=== PATIENT | female | born 1935 | race Caucasian/White ===

== ENCOUNTER → 2016-07-08 | Outpatient (CLI) | payer MEDICARE ==
--- NOTE | 2016-07-08 12:04 | RAD ---
INDICATION: Right leg swelling and pain COMPARISON: None. TECHNIQUE: Grayscale, color and spectral doppler ultrasound images were obtained of the right lower extremity venous vasculature. RIGHT: No thrombus identified in the common femoral vein, femoral vein, popliteal vein or visualized calf veins. Edema is visualized. IMPRESSION: 1. No thrombus identified in deep venous system of right lower extremity.
== END | disposition home or self-care (01) ==
LOC: US 10:19
PROVIDERS: ATTEND Family Medicine
DX: M79.604 Pain in right leg (principal); M79.89 Other specified soft tissue disorders
CPT/HCPCS: 93971

== ENCOUNTER 2016-10-22 08:25 | Outpatient (CLI) | payer MEDICARE ==
[2016-10-22] VITALS (8 sets, daily range): BP systolic 140–181; BP diastolic 68–81
[~2016-10-22] VITALS: Ht 157.5 cm; Wt 84.8 kg
[2016-10-22 09:36] LABS: BASO # 0.1 x10^3/uL (0.0-0.2); BASO % 1 % (0-3); EOS % 4 % (0-3); HEMOGLOBIN 13.1 g/dL (12.0-15.5); LYMPH # 2.1 x10^3/uL (1.0-4.8); LYMPH % 25 % (24-48); MEAN CORPUSCULAR HEMOGLOBIN 31 pg (25-35); MEAN CORPUSCULAR HGB CONC 35 g/dL (31-37); MEAN CORPUSCULAR VOLUME 89 fL (79-100); MONO % 8 % (0-9); NEUT % 63 % (31-73); PLATELET COUNT 244 x10^3/uL (140-400); RED BLOOD COUNT 4.29 x10^6/uL (3.50-5.40); RED CELL DISTRIBUTION WIDTH 14.9 % (11.5-14.5); WHITE BLOOD COUNT 8.4 x10^3/uL (4.0-11.0)
[2016-10-22] MEDS ORDERED: ALEN70TA5 PO (09:40)
[2016-10-22] MEDS ORDERED: HYDR12.58 PO (09:45)
[2016-10-22] MEDS ORDERED: METO50TA2 PO (09:45)
[2016-10-22] MEDS ORDERED: Diclofenac (09:45)
[2016-10-22 09:47] LABS: INR 0.9 (0.8-1.1); PROTHROMBIN TIME PATIENT 11.7 SEC (11.7-14.0)
[2016-10-22] MEDS ORDERED: HYDR-2666 PO (09:49)
[2016-10-22] MEDS ORDERED: CETI10TA22 PO (09:49)
[2016-10-22] MEDS ORDERED: OSC (09:49)
[2016-10-22] MEDS ORDERED: Oscal (09:51)
[2016-10-22] MEDS ORDERED: MIDAZOLAM HCL/PF 5 MG/5 ML VIAL. ONE (10:22)
[2016-10-22] MEDS ORDERED: fentaNYL PF VIAL 250 MCG/5 ML VIAL ONE (10:22)
[2016-10-22] MEDS ORDERED: LIDOCAINE 1% / SOD BICARB 8.4% 20 ML VIAL. IJ ONE ×2 (10:22→10:45)
[2016-10-22] MEDS ORDERED: MIDAZOLAM HCL/PF 5 MG/5 ML VIAL. IV ONE (10:45)
[2016-10-22] MEDS ORDERED: fentaNYL PF VIAL 250 MCG/5 ML VIAL IV ONE (10:45)
--- NOTE | 2016-10-22 11:19 | PDOC ---
MODERATE SEDATION ASSESSMENT RISKS/ALTERNATIVES Risks/Alternatives Risks and alternatives of this type of sedation and procedure discussed with: RISK/ALTERNATIVES: Patient H & P ON CHART H & P H & P on chart and reviewed for co-morbid conditions and appropriate labs. H&P ON CHART: Yes STATUS PREG STATUS ASSESSED: N/A MEDS/ALLERGIES REVIEWED Meds/Allergies Reviewed Medications and Allergies including time and route of recently administered narcotics and sedatives. MEDS/ALLERGIES REVIEWED: Yes ASA RATING ASA RATING: I AIRWAY ASSESSMENT Airway Assessment Airway patency, oral function limitations, presence of caps, crowns, dentures, partials, and ability to extend neck assessed. AIRWAY ASSESSMENT: Yes MALLAMPATI SCORE MALLAMPATI SCORE: III PRE-SEDATION ASSESSMENT PRE-SEDATION ASSESSMENT: Yes JAGDISH CANTU MD October 22, 2016 11:19
--- NOTE | 2016-10-22 11:24 | PDOC1 ---
History and Physical Date of Procedure Date of Admission 10/22/16 Procedure Procedure Fluoro guided L3 vertebroplasty Indication Indication 81 YO female with 5 week h/o severe LBP---Outside MRI c/w subacute osteoporotic L3 superior end plate compression fracture Past Medical History Past Medical History See Nursing Pre procedure PMH Past Surgical History Past Surgical History See Nursing Pre procedure PSH Current Medications Current Medications Current Medications Lidocaine/Sodium Bicarbonate (Buffered Lidocaine 1%) 20 ml STK-MED ONCE IJ ; Start 10/22/16 at 10:22; Stop 10/22/16 at 10:23; Status DC Midazolam HCl (Versed) 5 mg STK-MED ONCE .ROUTE ; Start 10/22/16 at 10:22; Stop 10/22/16 at 10:23; Status DC Fentanyl Citrate (Fentanyl 5ml Vial) 250 mcg STK-MED ONCE .ROUTE ; Start at 10:22; Stop 10/22/16 at 10:23; Status DC Cefazolin Sodium 50 ml @ As Directed STK-MED ONCE IV ; Start 10/22/16 at 10:22; Stop 10/22/16 at 10:23; Status DC Lidocaine/Sodium Bicarbonate (Buffered Lidocaine 1%) 20 ml 1X ONCE IJ Last administered on 10/22/16 11:13; Start 10/22/16 at 10:45; Stop 10/22/16 at 10:48 ; Status DC Midazolam HCl (Versed) 5 mg 1X ONCE IV Last administered on 10/22/16 11:15; Start 10/22/16 at 10:45; Stop 10/22/16 at 10:48; Status DC Fentanyl Citrate (Fentanyl 5ml Vial) 250 mcg 1X ONCE IV Last administered on 11:14; Start 10/22/16 at 10:45; Stop 10/22/16 at 10:48; Status DC Cefazolin Sodium 50 ml @ 100 mls/hr 1X ONCE IV Last administered on 10:32; Start 10/22/16 at 10:45; Stop 10/22/16 at 11:14; Status DC Active Scripts Active Reported [Oscal] 2 Tab DAILY Zyrtec (Cetirizine Hcl) 10 Mg Tablet 1 Tab PO DAILY Hydrocodone-Apap 5-325 (Hydrocodone Bit/Acetaminophen) 1 Each Tablet 1 Tab PO PRN Q6HRS PRN [Diclofenac] 7.5 Mg BID Hydrochlorothiazide Tablet (Hydrochlorothiazide) 12.5 Mg Tablet 12.5 Tab PO DAILY Metoprolol Tartrate 50 Mg Tablet 50 Mg PO BID Alendronate Sodium 70 Mg Tablet 1 Tab PO WEEKLY Allergies Allergies: Coded Allergies: No Known Drug Allergies (Unverified , 10/22/16) Physical Exam Vital Signs Vital Signs Date Time Temp Pulse Resp B/P (MAP) Pulse Ox O2 Delivery O2 Flow Rate FiO2 10/22/16 11:14 16 100 Nasal Cannula 2.0 10/22/16 11:08 70 10/22/16 09:05 97.6 181/77 (111) 97.6 Lungs: Clear to auscultation Heart: Regular rate Psych/Mental Status: Mental status NL Other Tender to palpation over mid L spine Diagnostic Data/Imaging Images Outside MRI L spine from [facility] dated 10/11/16 reviewed. Assessment Assessment Subacute osteoporotic L3 compression fracture, with severe LBP. Problems: Plan Plan Fluoro guided L3 vertebroplasty. JAGDISH CANTU MD October 22, 2016 11:24
--- NOTE | 2016-10-22 11:27 | PDOC ---
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 Post-Procedure Diagnosis Post-Procedure Diagnosis Same Procedure Performed Procedure Performed Fluoro guided L3 vertebroplasty Type of Anesthesia Type of Anesthesia Local + Mod sedation Estimated Blood Loss EBL: Minimal Condition of Patient Condition of Patient Stable. No apparent complication. Disposition Disposition Home from [facility] with son post recovery, if no problems. F/u with Dr Varela. Full report to follow. JAGDISH CANTU MD October 22, 2016 11:27
[2016-10-22] MEDS ORDERED: KETOROLAC TROMETHAMINE 30 MG/ML INJ. IV PRN (11:30)
--- NOTE | 2016-10-23 06:05 | RAD ---
Fluoro guided L3 Vertebroplasty Indication: 81-year-old female with subacute osteoporotic L3 superior endplate compression fracture, with associated severe, persistent low back pain. Fluoro time: 22.3 minutes Kerma-Area Product: 80 Gycm2 Moderate sedation: 41 minutes moderate sedation was provided utilizing a total of 2.5 mg Versed and 125 mcg fentanyl, IV. The patient was appropriately monitored by a qualified independent observer throughout the course of moderate sedation. Antibiotic: A single dose of Ancef was administered within 1 hour of the procedure start time. Consent: The procedure was explained in its entirety to the patient and/or the patient's designated inbound call center representative by a member of the treatment team. This included a discussion of risks and benefits and commonly accepted alternatives to the procedure, as well as expected consequences of no treatment at all. Discussion of risks included, but was not limited to, those that are most frequent and those that are rare, but possibly severe or life-threatening, as well as the possibility of unforeseen complications. Sterility: All elements of maximal sterile barrier technique, hand hygiene, skin preparation, and, if ultrasound was used, sterile ultrasound technique were followed. Procedure: Informed consent was obtained from the patient. She was placed prone on the angiography table. Midline low back was prepped and draped in the usual sterile fashion, utilizing all elements of maximal sterile barrier technique, as described above. Conscious sedation was provided with IV Versed and Fentanyl. 1 gram Ancef was given IV, prophylactically. Using aseptic technique, local anesthesia, and direct fluoroscopic guidance, an 11 gauge vertebroplasty needle was successfully introduced into anterior superior midline of the L3 vertebral body, via right transpedicular approach. Contrast opacified polymethylmethacrylate was then slowly and carefully introduced through the vertebroplasty needle, under strict fluoroscopic control. There was resulting good filling of the L3 vertebral body, without significant extraosseous extravasation of opacified cement. The vertebroplasty needle was removed and a sterile dressing was applied. Patient tolerated the procedure well, without apparent complication. Impression: Successful, uneventful fluoro guided L3 vertebroplasty, performed via unilateral right trans pedicular approach, as described.
== END 2016-10-22 14:14 | disposition home or self-care (01) ==
LOC: INTRAD 08:25
PROVIDERS: ATTEND Family Medicine
DX: S32.038A Other fracture of third lumbar vertebra, initial encounter for closed fracture (principal); X58.XXXA Exposure to other specified factors, initial encounter; Y93.89 Activity, other specified; Y92.89 Other specified places as the place of occurrence of the external cause; Y99.9 Unspecified external cause status; I10 Essential (primary) hypertension; M19.90 Unspecified osteoarthritis, unspecified site; Z90.710 Acquired absence of both cervix and uterus; Z96.652 Presence of left artificial knee joint
CPT/HCPCS: 22511; 36415; 85027; 85610; C1758; C1892; J0690; J2250; J3010

== ENCOUNTER → 2017-01-01 | Outpatient (CLI) | payer MEDICARE ==
[2016-10-22 13:15] VITALS: BP 157/79
[~2017-01-01] MED LIST: ALEN70TA5 PO; CETI10TA22 PO; Diclofenac; HYDR-2758 PO; HYDR12.58 PO; IOHEXOL 180 MG/ML 10 ML VIAL. ONE; METO50TA2 PO; OSC; Oscal; RANI150T6 PO; methylPREDNISolone ACETATE 40 MG/ML VIAL. ONE; methylPREDNISolone ACETATE 80 MG/ML VIAL. ONE
--- NOTE | 2017-01-02 00:11 | PAIN ---
DATE OF SERVICE: 01/01/2017 INITIAL CONSULTATION FOR PAIN CLINIC CHIEF COMPLAINT: Low back and right lower extremity pain. HISTORY OF PRESENT ILLNESS: This is an 81-year-old female who presents with history of pain in the low back and the right lower extremity for many months, worse over the past 3 months. The patient reports that she had a vertebroplasty in September 2016, which helped a lot of the pain and reduced the excruciating pain to just a dull, aggravating pain. The patient reports the pain is now in the back, in the right leg, posterior gluteus, posterior thigh, lateral thigh, medial thigh, anterior thigh, medial lower leg, and posterior lower leg, worse with walking, standing, and change in positions. The patient reports she is very unstable on her feet. She is using a cane in her left hand, hold onto items at home such as furniture, and that makes her more stable. The patient reports she does not go out anywhere she has to walk very far because she is afraid of not being able to walk or falling, although she has not had any falls by her report. The patient reports she has had no previous physical therapies, no exercises, no other treatments currently for her back pain at this time. The patient did have MRI scan of lumbar spine showing disk bulging throughout the lower lumbar spine, most significant stenosis noted at L4-L5 with foraminal stenosis of mild to moderate at this level with mild central stenosis as well, also has an L5-S1 minimal disk broad-based bulging and this is present at L3-L4 as well. The patient reports her pain is constant and aching, radiating and shooting into the right leg. The patient reports a disability rate from 0-10, 10 being the worst, is at 9 with family and home responsibilities and occupation, 10 with recreation, 7 with social activity, 8 with self-care, and 2 with life support activities. The patient has not tried any other medications for the pain at this time except [id number] Tylenol. The patient reports no loss of motor function, but again significant fatigability with ambulation, better with sitting or lying down, reports that it does not awaken her from sleep very often, maybe once in the past month. Again, the patient is using a cane to ambulate, reports it does not affect her bowel or bladder control. PAST MEDICAL HISTORY: Significant for hypertension, arthritis, some urinary incontinence in the past, hearing loss with bilateral hearing aids, also history of osteoporosis. PREVIOUS SURGERIES: Include hernia repair, partial hysterectomy, appendectomy, bilateral cataract extractions, and left total knee replacement. CURRENT MEDICATION LIST: Includes hydrochlorothiazide, metoprolol, diclofenac, and alendronate. ALLERGIES: No known drug allergies. Has a hypersensitivity to strong sunlight. FAMILY HISTORY: Significant for cardiac disease and cancers. SOCIAL HISTORY: The patient does not smoke, does not drink alcohol. She is , lives locally in [place], [place] on her own. REVIEW OF SYSTEMS: The patient's review of systems is positive for those items mentioned in history of present illness. All systems reviewed and otherwise negative. It is complete, full, and well documented on the patient's chart. PHYSICAL EXAMINATION: VITAL SIGNS: Today, the patient's blood pressure is 162/78, pulse is 67, respirations 18, temperature 97.7 degrees Fahrenheit, height is 5 feet 2 inches, and weighs 185 pounds. GENERAL: The patient is awake, alert, oriented, appropriate, very pleasant demeanor. HEENT: Head shows normocephalic, atraumatic. The patient wears eyeglasses. Extraocular movements are intact, symmetrical. Oral cavity shows mucous membranes moist and pink. Dentition is intact. NECK: Shows anterior throat supple without palpable lymphadenopathy noted. Swallow reflex is symmetrical. CHEST: Shows normal on inspection. Breath sounds clear to auscultation bilaterally. HEART: Shows S1 and S2 clear. No murmurs auscultated. ABDOMEN: Soft, obese, nontender, nondistended. No palpable organomegaly. No rebound or guarding demonstrated. BACK: Shows spine grossly midline. Slight exaggeration of thoracic kyphosis, some mild flattening of lumbar lordotic curvature. No previous surgical scars are noted. No bruises, lesions, or rashes. Lumbar paraspinous muscle shows symmetrical on inspection with palpation shows some moderate tenderness with palpation in the middle and lower distribution of paraspinous muscles, but only diffusely and without asymmetry, no tenderness over the sacrum or sacroiliac regions or the spinous processes. The patient shows good rotation and motion of the lumbar spine, both laterally greater than 10 degrees right and left as well as extension greater than 10 degrees, forward flexion 45 degrees without pain reported. Lower extremities show deep tendon reflexes at 1+ in the patellar and tendo calcaneus tendons are equal. Motor exam is strong with dorsiflexion, extension, quadriceps and hamstring flexion, all symmetrical with about 4 on a scale of 5, but symmetrical and equal bilaterally. Peripheral pulses are 1+ posterior tibial and dorsalis pedis pulses and are palpable. There is approximately 2+ pitting edema in the right ankle, 1+ pitting edema in the left ankle with some mild erythematous discoloration in the posterior aspect of the inferior calf with edema on the right side, which ____ slightly tender with palpation. Straight leg raise is noted to be negative for reproduction of radicular symptoms bilaterally. Gaenslen's and Jovany's maneuvers are negative bilaterally as well. The patient is able to stand, but has difficulty standing from a seating position, needs the arms of the chair to help do this, and she uses her cane also. She is walking with a significant antalgic gait, appears to favor the right lower extremity fairly significantly with a limping gait and she is using the cane again in her left hand. IMPRESSION: 1. This is an 81-year-old female with several-month history of increasing pain in low back and right lower extremity in a radicular fashion. 2. MRI scan of lumbar spine as noted. 3. History of arthritis. 4. History of hypertension. 5. Hearing loss. PLAN: Options were discussed with the patient including conservative medical management, physical therapy, and interventional techniques. She would like to pursue interventional techniques. We discussed a lumbar epidural steroid injection using description as well as anatomical models to describe the procedure. Risks were then discussed including, but not limited to bleeding, infection, possibility of epidural hematoma and subsequent neurological compromise, dural punctures, headaches, spinal cord and/or nerve damage, side effects of steroid medication, and poor results regarding pain control. The patient understands and wishes to proceed. The patient will return to clinic in approximately 2 weeks for followup. She was counseled on return appointment, activity level and side effects to be aware of. The patient is encouraged to increase her activity as tolerated, maintain her cane use as well. DIAGNOSES: Lumbar radiculopathy with lumbar spinal stenosis, lumbar degenerative disease. PROCEDURE: Lumbar epidural steroid injection, translaminar approach, at the L4-L5 level using C-arm fluoroscopic guidance under sterile prep and drape using local anesthetic. MEDICATION INJECTED: Depo-Medrol 120 mg plus 10 mL preservative-free normal saline and 2 mL of Isovue for contrast. CONDITION AT DISCHARGE: Stable. The patient tolerated procedure well, had no complications. SEAN MEANS MD DR: NENO/tamara JOB#: [id number] / [id number] JAZIEL Laguna MD
== END | disposition home or self-care (01) ==
LOC: PNCL 09:52
PROVIDERS: ATTEND Anesthesiology
DX: M51.16 Intervertebral disc disorders with radiculopathy, lumbar region (principal); M48.06 Spinal stenosis, lumbar region; I10 Essential (primary) hypertension; M19.90 Unspecified osteoarthritis, unspecified site; H91.93 Unspecified hearing loss, bilateral; Z96.652 Presence of left artificial knee joint; Z90.710 Acquired absence of both cervix and uterus; Z87.39 Personal history of other diseases of the musculoskeletal system and connective tissue
CPT/HCPCS: 62323; J1030; J1040

== ENCOUNTER → 2017-01-15 | Outpatient (CLI) | payer MEDICARE ==
[2016-10-22 13:15] VITALS: BP 157/79
--- NOTE | 2017-01-15 12:09 | PN ---
DATE: 01/15/2017 PROGRESS NOTE FOR PAIN CLINIC DIAGNOSES: Lumbar radiculopathy with lumbar degenerative disk disease and spinal stenosis. HISTORY OF PRESENT ILLNESS: The patient is an 81-year-old female who returns for followup status post lumbar epidural steroid injection x 1. The patient reports approximately 75% improvement after the first injection, still some pain in the low back, but much less than the right lower extremity she had before. The patient reports that her pain is a 7 on a scale of 10 and it is worst . It is an aching pain. It is no more radiating significantly into the right leg, occasionally in the right hip and posteriorly in the thigh, but that is about all. The patient reports no new motor or sensory deficits. She had been increasing her activity with greater ease and comfort and feeling much better. She reports she is feeling much better at night. She is not having any difficulty with awakening from the pain, sleeps about 7 hours at a time without disturbance. The patient reports no new motor or sensory deficits. No new bowel or bladder incontinence or other complaints. PHYSICAL EXAMINATION: VITAL SIGNS: The patient's blood pressure is 115/80, pulse 72, respirations 16 and temperature 97.9 degrees Fahrenheit. Height is 5 feet 2 inches, weighs 185 pounds. GENERAL: The patient is awake, alert, oriented, appropriate, very pleasant demeanor. HEENT: Head shows normocephalic, atraumatic. Extraocular movements are intact and symmetrical. Oral cavity, mucous membranes are moist and pink. Dentition is intact. NECK: Shows anterior throat supple, without palpable lymphadenopathy noted. Swallow reflex is symmetrical. CHEST: Shows normal on inspection. Breath sounds clear to auscultation bilaterally. HEART: Shows S1 and S2 clear. ABDOMEN: Soft, nontender and nondistended. BACK: Shows spine grossly in the midline. Slight exaggeration of thoracic kyphosis and mild flattening of lumbar lordotic curvature. Lumbar paraspinous muscle shows symmetrical, without tenderness. Significantly, there is some mild tenderness in the low back, in the lumbar paraspinous muscles, but only inferiorly with deep palpation. No radiation. The patient shows good rotation and motion of the lumbar spine, both laterally as well as extension and flexion. EXTREMITIES: Lower extremities show deep tendon reflexes at 1+/4 and the patellar and tendo calcaneus tendons are equal. Motor exam is approximately 4 on a scale of 5, but equal and symmetrical with dorsiflexion, extension, quadriceps and hamstring flexion. SUMMARY: Options were discussed with the patient. The patient's old chart was reviewed. Her current medication regimen was updated. Current review of systems updated today as well. We will proceed with a second lumbar epidural steroid injection today with fluoroscopic guidance. Risks were again discussed including but not limited to bleeding, infection, possibility of epidural hematoma, subsequent neurologic compromise, dual puncture headaches, spinal cord and/or nerve damage, side effects of steroid medication and poor results regarding pain control. The patient understands and wishes to proceed. The patient will return to clinic in approximately 2 weeks for followup. She was counseled on return appointment, activity level and side effects to be aware of. DIAGNOSES: Lumbar radiculopathy with lumbar degenerative disk disease and lumbar spinal stenosis. PROCEDURE: Lumbar epidural steroid injection in translaminar approach at the L4-L5 level using C-arm fluoroscopic guidance under sterile prep and drape using local anesthetic. MEDICATIONS INJECTED: A total of 120 mg Depo-Medrol plus 10 mL preservative-free normal saline and 2 mL of Isovue for contrast. CONDITION AT DISCHARGE: Stable. The patient tolerated the procedure well, had no complications. SEAN MEANS MD DR: NENO/tamara JOB#: [id number] / [id number]
== END | disposition home or self-care (01) ==
LOC: PNCL 09:20
PROVIDERS: ATTEND Anesthesiology
DX: M51.16 Intervertebral disc disorders with radiculopathy, lumbar region (principal); M48.06 Spinal stenosis, lumbar region; M19.90 Unspecified osteoarthritis, unspecified site; I10 Essential (primary) hypertension; Z90.710 Acquired absence of both cervix and uterus; Z87.39 Personal history of other diseases of the musculoskeletal system and connective tissue
CPT/HCPCS: 62323; J1030; J1040

== ENCOUNTER → 2017-01-29 | Outpatient (CLI) | payer MEDICARE ==
[2016-10-22 13:15] VITALS: BP 157/79
--- NOTE | 2017-01-29 11:26 | PN ---
DATE: 01/29/2017 PROGRESS NOTE FOR PAIN CLINIC DIAGNOSES: Lumbar radiculopathy with lumbar degenerative disk disease and lumbar spinal stenosis. HISTORY OF PRESENT ILLNESS: The patient is an 81-year-old female who returns for followup status post lumbar epidural steroid injection x 2. The patient reports about 75% improvement overall, still some pain in the low back and slightly more on the right hip and leg than the left, but very rarely radiating into the lower extremity anymore. The patient reports it is worse with standing and walking. She can walk about 15-20 minutes and she has to sit down because the pain becomes unbearable. The patient reports pain as a 6 on a scale of 10 it is worse, 3 at its least and is currently a 4 on average. The patient reports it awakens her from sleep occasionally, but not every night. She sleeps about 6-8 hours a night if she does not awaken or if she can reposition and get back to sleep. The patient reports no new motor or sensory deficits. No new bowel or bladder incontinence or other complaints. PHYSICAL EXAMINATION: VITAL SIGNS: The patient's blood pressure is 130/82, pulse 66, respirations 16 and temperature 97.6 degrees Fahrenheit. Height is 5 feet 2 inches, weight is 185 pounds. GENERAL: The patient is awake, alert, oriented, appropriate, has very pleasant demeanor. HEENT: Head shows normocephalic, atraumatic. Extraocular movements are intact and symmetrical. Oral cavity, mucous membranes are moist and pink. Dentition is intact. NECK: Shows anterior throat supple, without palpable lymphadenopathy noted. Swallow reflex is symmetrical. CHEST: Shows normal on inspection. Breath sounds are clear to auscultation bilaterally. HEART: Shows S1 and S2 clear. ABDOMEN: Soft, nontender and nondistended. No palpable organomegaly is noted. BACK: Shows spine grossly midline. Slight exaggeration of thoracic kyphosis and mild flattening of lumbar lordotic curvature. Lumbar paraspinous musculature shows some moderate tenderness with palpation only in the lower lumbar distribution, only diffusely, right and left. The patient shows good rotation and motion of the lumbar spine, both laterally as well as extension and flexion without difficulty. EXTREMITIES: Lower extremities show deep tendon reflexes 1+ in the patellar and tendo calcaneus tendons. Motor exam is approximately 4 on a scale of 5, but equal and symmetrical with dorsiflexion and extension bilaterally. Options were discussed with the patient. The patient's old chart was reviewed as her current medication regimen updated. Current review of systems updated today as well. We will proceed with a third in the series of lumbar epidural steroid injection using C-arm fluoroscopic guidance. Risks were again discussed, including but not limited to, bleeding, infection, possibility of epidural hematoma, subsequent neurologic compromise, dural puncture, headaches, spinal cord and/or nerve damage, side effects of steroid medication and poor results regarding pain control. The patient understands and wishes to proceed. The patient will return to clinic in approximately 2 weeks for followup. She was counseled as to return appointment, activity level and side effects to be aware of. DIAGNOSES: Lumbar radiculopathy with lumbar spinal stenosis and lumbar degenerative disk disease. PROCEDURE: Lumbar epidural steroid injection in translaminar approach at the L4-L5 level using C-arm fluoroscopic guidance under sterile prep and drape using local anesthetic. MEDICATION INJECTED: A total of 120 mg Depo-Medrol plus 10 mL of preservative-free normal saline and 2 mL of Isovue for contrast. CONDITION ON DISCHARGE: Stable. The patient tolerated the procedure well, had no complications. SEAN MEANS MD DR: NENO/tamara JOB#: [id number] / [id number]
== END | disposition home or self-care (01) ==
LOC: PNCL 09:19
PROVIDERS: ATTEND Anesthesiology
DX: M51.16 Intervertebral disc disorders with radiculopathy, lumbar region (principal); M48.06 Spinal stenosis, lumbar region; I10 Essential (primary) hypertension; M19.91 Primary osteoarthritis, unspecified site; Z90.710 Acquired absence of both cervix and uterus; Z87.39 Personal history of other diseases of the musculoskeletal system and connective tissue
CPT/HCPCS: 62323; J1030; J1040

== ENCOUNTER → 2018-05-03 | Outpatient (CLI) | payer MEDICARE ==
[2016-10-22 13:15] VITALS: BP 157/79
[~2018-05-03] MED LIST changes: +GLUC1CAP48 PO; -HYDR-2758 PO; +HYDR-2761 PO; -IOHEXOL 180 MG/ML 10 ML VIAL. ONE; -METO50TA2 PO; +METO50TA6 PO; +RANI150T21 PO; -RANI150T6 PO; -methylPREDNISolone ACETATE 40 MG/ML VIAL. ONE; -methylPREDNISolone ACETATE 80 MG/ML VIAL. ONE
--- NOTE | 2018-05-03 10:28 | EKG ---
[facility] [address] [place] [address] Test Date: 2018-05-03 Test Time: 10:36:02 Pat Name: ESTRELLA HARRINGTON Department: Room: Gender: F Long Distance Operator: TV : 1935 Requested By: BRITNI AVENDAÑO Order Number: [id number] Reading MD: Didier Ricks Measurements Intervals [place] Rate: 77 P: 41 CT: 166 QRS: 28 QRSD: 84 T: 17 QT: 394 QTc: 448 Interpretive Statements SINUS RHYTHM NONSPECIFIC ST-T WAVE CHANGES. POSSIBLY ABNORMAL ECG RI6.01 No previous ECG available for comparison Electronically Signed On 05-04-2018 12:40:43 ESCROW MANAGER by Didier Ricks
[2018-05-03 10:41] LABS: ALBUMIN 3.2 g/dL (3.4-5.0); CALCIUM 9.9 mg/dL (8.5-10.1); CREATININE 0.7 mg/dL (0.6-1.0); GFR 79.9; POTASSIUM 3.9 mmol/L (3.5-5.1)
[2018-05-03 10:50] LABS: BASO # 0.1 x10^3/uL (0.0-0.2); BASO % 1 % (0-3); EOS # 0.3 x10^3/uL (0.0-0.7); EOS % 4 % (0-3); HEMATOCRIT 38.3 % (36.0-47.0); HEMOGLOBIN 13.2 g/dL (12.0-15.5); LYMPH # 2.2 x10^3/uL (1.0-4.8); LYMPH % 28 % (24-48); MEAN CORPUSCULAR HEMOGLOBIN 31 pg (25-35); MEAN CORPUSCULAR HGB CONC 35 g/dL (31-37); MEAN CORPUSCULAR VOLUME 90 fL (79-100); MONO # 0.7 x10^3/uL (0.0-1.1); MONO % 9 % (0-9); NEUT # 4.6 x10^3uL (1.8-7.7); NEUT % 58 % (31-73); PLATELET COUNT 217 x10^3/uL (140-400); RED BLOOD COUNT 4.24 x10^6/uL (3.50-5.40); RED CELL DISTRIBUTION WIDTH 14.9 % (11.5-14.5); WHITE BLOOD COUNT 7.8 x10^3/uL (4.0-11.0)
[2018-05-03 10:56] LABS: PROTHROMBIN TIME PATIENT 11.8 SEC (11.7-14.0)
[2018-05-03 11:50] LABS: BILIRUBIN,URINE NEGATIVE (NEG); CLARITY,URINE CLEAR; COLOR,URINE YELLOW; NITRITE,URINE NEGATIVE (NEG); PROTEIN,URINE NEGATIVE (NEG-TRACE); UROBILINOGEN,URINE 0.2 mg/dL (0.2 mg/dL)
[2018-05-03 12:05] LABS: BACTERIA,URINE 0 /HPF (0-FEW); RBC,URINE 0 /HPF (0-2); SQUAMOUS EPITHELIAL CELL,UR FEW /LPF; WBC,URINE OCC /HPF (0-4)
--- NOTE | 2018-05-04 13:54 | RAD ---
CHEST PA LATERAL Clinical indications: PRE OP RT KNEE REPLACEMENT ON 05/11/18. The patient is 82 years old. COMPARISON: October 07, 2010. Findings: No acute lung infiltrate or pleural effusion or pulmonary edema or lung mass or pneumothorax is seen. The heart size, pulmonary vasculature, mediastinum and both ekaterina are unremarkable. There is a compression fracture treated with kyphoplasty of the upper lumbar spine which may be L2. There is a mild compression deformity of T6 of indeterminate age. Impression: No acute lung infiltrate. Compression fracture of L2 which has been treated with a vertebroplasty. Mild compression fracture of T6 of indeterminate age. Electronically signed by: Arsalan Vasquez MD (05/04/2018 1:50 PM) [facility]
== END | disposition home or self-care (01) ==
LOC: SURGPAT 09:45
PROVIDERS: ATTEND Orthopaedic Surgery
DX: Z01.818 Encounter for other preprocedural examination (principal); M80.08XA Age-related osteoporosis with current pathological fracture, vertebra(e), initial encounter for fracture; Z98.890 Other specified postprocedural states
CPT/HCPCS: 36415; 71046; 80048; 81001; 82040; 85025; 85610; 85730; 87641; 93005

== ENCOUNTER 2021-04-17 21:45 | Emergency (ER) | payer MEDICARE, OTHER ==
[~2021-04-17] VITALS: Ht 157.5 cm; Wt 83.0 kg
[~2021-04-17 21:45] MED LIST changes: -ALEN70TA5 PO; +ALEN70TA71 PO; -CETI10TA22 PO; +CETI10TA74 PO; +RANI-376 PO; -RANI150T21 PO
[2021-04-17 22:00] VITALS: BP 177/81
--- NOTE | 2021-04-17 22:05 | PHYS DOC ---
Past Medical History Smoking Status: Never Smoker General Adult EDM: Chief Complaint: MECHANICAL FALL HPI: HPI: Patient is a 85 year old female presents after mechanical fall. Patient states she was reaching for an object lost her balance collapsed to the ground landing on her buttocks then rolled back and hit her head on the corner of a table. Patient denies any loss of consciousness. Patient has laceration to her posterior scalp. She denies any headache or neck pain. Review of Systems: Review of Systems: Review of systems: Constitutional symptoms- No fever, no chills. Eyes- No Discharge, No Visual Loss Respiratory symptoms- No shortness of breath, No wheezing, No Dyspnea on Exertion Cardiovascular Systems; No chest pain, No Palpitations, No syncope Gastrointestinal symptoms: NO abdominal pain, no nausea, no vomiting or diarrhea. Genitourinary symptoms: No dysuria. Musculoskeletal symptoms: No back pain No extremity pain. NEUROLOGICAL Symptoms: No headache, no generalized weakness; No focal Weakness Skin: No rash. Positive laceration Heart Score: C/O Chest Pain: N/A Risk Factors: Risk Factors: DM, Current or recent (<one month) smoker, HTN, HLP, family history of CAD, obesity. Risk Scores: Score 0 - 3: 2.5% MACE over next 6 weeks - Discharge Home Score 4 - 6: 20.3% MACE over next 6 weeks - Admit for Clinical Observation Score 7 - 10: 72.7% MACE over next 6 weeks - Early Invasive Strategies Allergies: Allergies: Allergies Coded Allergies Type Severity Reaction Last Updated Verified No Known Drug Allergies 05/11/18 No Physical Exam: PE: Constitutional: Well developed, well nourished, no acute distress, non-toxic appearance. [] HENT: Normocephalic, atraumatic, bilateral external ears normal, oropharynx moist, no oral exudates, nose normal. [] Eyes: PERRLA, EOMI, conjunctiva normal, no discharge. [] Neck: Normal range of motion, no tenderness, supple, no stridor. [] Cardiovascular:Heart rate regular rhythm, no murmur [] Lungs & Thorax: Bilateral breath sounds clear to auscultation [] Abdomen: Bowel sounds normal, soft, no tenderness, no masses, no pulsatile masses. [] Skin: Warm, dry, no erythema, no rash. [] 2 cm laceration posterior right scalp Back: No tenderness, no CVA tenderness. [] Extremities: No tenderness, no cyanosis, no clubbing, ROM intact, no edema. [] Neurologic: Alert and oriented X 3, normal motor function, normal sensory function, no focal deficits noted. [] Psychologic: Affect normal, judgement normal, mood normal. [] EKG: EKG: [] Radiology/Procedures: Radiology/Procedures: [] Impression: EXAMINATION: CT HEAD AND C-SPINE WO CLINICAL HISTORY: Fall with posterior scalp laceration TECHNIQUE: Serial axial images without IV contrast were obtained from the vertex to the foramen magnum. CT of the cervical spine without IV contrast. Spiral, high resolution axial images were obtained from the skull base to the cervicothoracic junction with sagittal and coronal planar reconstructions. CT Dose Reduction Employed: One or more of the following individualized dose reduction techniques were utilized for this examination: 1. Automated exposure control 2. Adjustment of the mA and/or kV according to patient size 3. Use of iterative reconstruction technique. COMPARISON: None FINDINGS: BRAIN: Acute Change: No evidence of an acute contusion or other acute parenchymal process. Hemorrhage: No evidence of acute intracranial hemorrhage. Mass Lesion/Mass Effect: No evidence of intracranial mass or extraaxial fluid collection. No significant mass effect. Chronic Change: Patchy hypoattenuation in the supratentorial white matter, nonspecific but likely represents mild to moderate microvascular ischemia. Atherosclerotic calcification of the intracranial portion of the bilateral internal carotid arteries. Parenchyma: Mild to moderate generalized volume loss. Ventricles: Ventricular enlargement concordant with degree of parenchymal volume loss. Paranasal Sinuses and Skull Base: Visualized paranasal sinuses clear. No evidence of acute calvarial fracture. C-SPINE: Alignment: Minimal dextroconvex curvature, possibly positional. Osseous Structures: No evidence of acute fracture or spondylolisthesis. Grade 1 C3-4 anterolisthesis, likely degenerative. Minimal anterior subluxation of C4 on C5 and C5 on C6, likely positional or degenerative. Degenerative Changes: Multilevel degenerative disc disease, greatest at C6-7. Multilevel neural foraminal narrowing, greater on the left. No evidence of high- grade osseous spinal stenosis. Multilevel facet arthropathy. Cervical Soft Tissues: No prevertebral soft tissue swelling. IMPRESSION: BRAIN: No evidence of acute intracranial abnormality. C-SPINE: No evidence of acute osseous abnormality involving the cervical spine. Multilevel degenerative findings as described. Course & Med Decision Making: Course & Med Decision Making Pertinent Labs and Imaging studies reviewed. (See chart for details) [] CT imaging reviewed no acute traumatic injury. Procedure 2 cm laceration posterior scalp cleaned to a bloodless field no foreign bodies identified. 2 digna placed no complication patient tolerated procedure. Patient's tetanus was updated. She was discharged home with instructions to have digna taken out in 7 to 10 days. Dragon Disclaimer: Dragon Disclaimer: This electronic medical record was generated, in whole or in part, using a voice recognition dictation system. Departure Departure Impression: Primary Impression: Head injury Additional Impression: Scalp laceration Disposition: HOME / SELF CARE / HOMELESS Condition: STABLE Referrals: JAZIEL LEWIS MD (PCP) Patient Instructions: Facial or Scalp Contusion, Head Injury, Adult Additional Instructions: Digna out in 7-10 days. ANNMARIE HINOJOSA DO Apr 17, 2021 22:05
--- NOTE | 2021-04-17 22:52 | RAD ---
EXAMINATION: CT HEAD AND C-SPINE WO CLINICAL HISTORY: Fall with posterior scalp laceration TECHNIQUE: Serial axial images without IV contrast were obtained from the vertex to the foramen magnum. CT of the cervical spine without IV contrast. Spiral, high resolution axial images were obtained from the skull base to the cervicothoracic junction with sagittal and coronal planar reconstructions. CT Dose Reduction Employed: One or more of the following individualized dose reduction techniques wer e utilized for this examination: 1. Automated exposure control 2. Adjustment of the mA and/or kV ac cording to patient size 3. Use of iterative reconstruction technique. COMPARISON: None FINDINGS: BRAIN: Acute Change: No evidence of an acute contusion or other acute parenchymal process. Hemorrhage: No evidence of acute intracranial hemorrhage. Mass Lesion/Mass Effect: No evidence of intracranial mass or extraaxial fluid collection. No signific ant mass effect. Chronic Change: Patchy hypoattenuation in the supratentorial white matter, nonspecific but likely rep resents mild to moderate microvascular ischemia. Atherosclerotic calcification of the intracranial po rtion of the bilateral internal carotid arteries. Parenchyma: Mild to moderate generalized volume loss. Ventricles: Ventricular enlargement concordant with degree of parenchymal volume loss. Paranasal Sinuses and Skull Base: Visualized paranasal sinuses clear. No evidence of acute calvarial fracture. C-SPINE: Alignment: Minimal dextroconvex curvature, possibly positional. Osseous Structures: No evidence of acute fracture or spondylolisthesis. Grade 1 C3-4 anterolisthesis, likely degenerative. Minimal anterior subluxation of C4 on C5 and C5 on C6, likely positional or deg enerative. Degenerative Changes: Multilevel degenerative disc disease, greatest at C6-7. Multilevel neural lenard inal narrowing, greater on the left. No evidence of high-grade osseous spinal stenosis. Multilevel fa cet arthropathy. Cervical Soft Tissues: No prevertebral soft tissue swelling. IMPRESSION: BRAIN: No evidence of acute intracranial abnormality. C-SPINE: No evidence of acute osseous abnormality involving the cervical spine. Multilevel degenerative findings as described. Electronically signed by: Olvin Bashir DO (04/17/2021 10:50 PM) [facility]
[2021-04-17] MEDS ORDERED: DIPH,PERTUSS(ACELL),TET VAC/PF 0.5 ML SYRINGE. VAX IM ONE (23:15)
== END 2021-04-17 23:55 | disposition home or self-care (01) ==
LOC: ER 21:45
DX: S01.01XA Laceration without foreign body of scalp, initial encounter (principal); W18.09XA Striking against other object with subsequent fall, initial encounter; Y93.89 Activity, other specified; Y92.89 Other specified places as the place of occurrence of the external cause; Y99.8 Other external cause status
CPT/HCPCS: 12001; 70450; 72125; 90471; 90715; 99284-25

== ENCOUNTER 2021-07-08 13:11 | Inpatient (IN) | payer MEDICARE, OTHER ==
[~2021-07-08] VITALS: Ht 160 cm; Wt 63.0 kg
[~2021-07-08 13:11] MED LIST changes: +AMLO-186 PO; +CALC-98 PO; +DICL100G28 TP; +DULO60CA45 PO
[2021-07-08] MEDS ORDERED: MORPHINE SULFATE 20 MG/ML CONC SOLUTION. SL PRN ×4 (14:00→14:15)
[2021-07-08] MEDS ORDERED: LORazepam INTENSOL 2 MG/ML ORAL.CONC SL PRN ×2 (14:15)
[2021-07-08] MEDS: LORazepam INTENSOL 2 MG/ML ORAL.CONC SL SCH ×2 (14:26→18:00)
[2021-07-08] MEDS: MORPHINE SULFATE 20 MG/ML CONC SOLUTION. SL SCH ×2 (14:27→18:00)
[2021-07-08] MEDS: LORazepam INTENSOL 2 MG/ML ORAL.CONC SL PRN (15:59)
--- NOTE | 2021-07-08 18:03 | NUR ---
Wound/Ostomy Care Wound Type/Assessment: Follow up for management of BLE stasis ulcers s/p OR debridement. Wound vac to BLE D/C'ed today, pt signed onto inpatient hospice, son at bedside. Wound dressings have been painful for patient. Premedicated today with IV morphine, pt resting with eyes closed, difficult to rouse by voice. Pt responds to painful stimuli (woundcare) with soft moans. Wounds cleansed, pictured and measured, including 2 DTIs to L lateral ankle and heel. R medial lower leg wound is covered with soft yellow slough and adipose, exposed tendon, and minimal granulation. This wound drains copious amounts of serosanguinous fluid which can be observed actively filling the cavity. R posterior Lower leg wound has slough and adipose to the base with 50% granulation. LLE wound is completely slough covered; previously purple, dusky margins are now dry eschar, with slough to bases beginning to darken. DTIs to L heel and ankle are dusky red/purple with well-defined borders. No other open wounds noted on head to toe assessment. Treatment Recommendations/Plan: Continue palliative treatment to wounds. Goals are for dressings to be minimal, reducing risk for pain and infection. RLE: Apply saline moistened hydrofera blue classic (HFBC) to wound bases, cover with ABDs and kerlix. HFBC may remain in place for 3-4 days. Change ABDs and kerlix as needed to manage drainage. LLE: Saline moistened HFBC, cover with xeroform, ABDs, kerlix, and tape. Change every 2-3 days. L ankle/heel: Apply skin prep and cover with dry foam dressing for protection. Check wounds daily. Change foam every 5 days. Education provided: Pt is inappropriate for education at this time. Offloading surface/device: Purple wedge, pillows for positioning and comfort. Recommended Referrals/Tests: NA Discharge Recommendations for dressings: As above. Minimally invasive in order to prevent excessive pain or risk for infection
[2021-07-08 19:00] VITALS: BP 124/57
[2021-07-09] MEDS: LORazepam INTENSOL 2 MG/ML ORAL.CONC SL SCH ×4 (00:13→17:26)
[2021-07-09] MEDS: MORPHINE SULFATE 20 MG/ML CONC SOLUTION. SL SCH ×6 (00:14→20:58)
[2021-07-09 07:00] VITALS: BP 127/64
[2021-07-09 19:00] VITALS: BP 123/52
[2021-07-10] MEDS: LORazepam INTENSOL 2 MG/ML ORAL.CONC SL SCH ×4 (00:43→18:36)
[2021-07-10] MEDS: MORPHINE SULFATE 20 MG/ML CONC SOLUTION. SL SCH ×4 (02:43→21:06)
[2021-07-10 07:00] VITALS: BP 119/49
--- NOTE | 2021-07-10 08:26 | PN ---
DATE: 07/10/2021 LOCATION: She is in room 554. SUBJECTIVE: This 85-year-old female remains on inpatient hospice with comfort care measures ongoing. Son is present and discussed with him in detail the fact this morning. Her breathing is more of a diagonal pattern and would not be surprised if the end is near. OBJECTIVE: VITAL SIGNS: Stable. She is afebrile. She is unarousable this morning. CHEST: Clear. HEART: Regular. ABDOMEN: Benign. ASSESSMENT: Comfort care. The patient with multiple underlying issues with the most recent being streptococcal bacteremia and septicemia from leg wounds. PLAN: Continue comfort care. She appears very comfortable this morning. ASHLEY DR: Alethea TID: [id number]
--- NOTE | 2021-07-10 08:47 | HP ---
DATE OF SERVICE: 07/10/2021 ADMIT DATE: 07/08/2021 ADMISSION HISTORY AND PHYSICAL This is for general inpatient hospice, where she was transferred. CHIEF COMPLAINT AND HISTORY OF PRESENT ILLNESS: This is an 85-year-old female transferred to General Inpatient care after a hospitalization with streptococcal bacteremia from her legs, which were debrided during the stay, was venous stasis ulcers on her lower extremities. The patient and family decided because of this and her general ongoing debility with inability to move or get out of bed that she wanted palliative care and this was accomplished. PAST MEDICAL HISTORY: Well documented on old charts. Does include chronic lymphedema, venous stasis edema. Recent episode of sepsis. She also had a Proteus urinary tract infection. She has had a decrease in her overall mental status. She has a large breast mass likely cancer with no plans at this point, a biopsy with the palliative route chosen. MEDICATIONS: Listed on computer have been addressed. ALLERGIES: She has no known drug allergies. SOCIAL HISTORY: Lifetime nonsmoker, nondrinker, does not use drugs. Very supportive family. FAMILY HISTORY: Noncontributory. REVIEW OF SYSTEMS: Remarkable only for the fact that she can tell me she is comfortable on current regimen. She is becoming less responsive daily. PHYSICAL EXAMINATION: GENERAL: She is a well-developed, well-nourished white female who appears uncomfortable. VITAL SIGNS: Stable. She is afebrile. HEAD, EYES, EARS, NOSE AND THROAT: Remarkable for glasses. NECK: Supple without adenopathy or thyromegaly. CHEST: Clear to auscultation. HEART: Regular rate and rhythm without S3, S4 or murmur. ABDOMEN: Soft, nontender, without hepatosplenomegaly or mass. EXTREMITIES: Without cyanosis, clubbing. Significant edema of the legs and her wounds are wrapped. NEUROLOGIC: Nonfocal. ASSESSMENT: Transition to palliative care due to multiple ongoing problems as outlined above. PLAN: Will be available for the family and hospice as needed for old age. ALEX DR: Alethea TID: [id number]
--- NOTE | 2021-07-10 10:00 | NUR ---
Patient appears to be resting, respiratory rate 6-8 per minutes. Son with patient, additional family members to arrive. Patient responsive only when medication placed in mouth, closes lips together then this is done. Heart rate 102-108 per monitor.
--- NOTE | 2021-07-10 18:00 | NUR ---
No significant change in pt status noted this shift. resp do not appear labored. Family at bedside.
[2021-07-11] MEDS: LORazepam INTENSOL 2 MG/ML ORAL.CONC SL SCH ×5 (00:04→23:49)
[2021-07-11] MEDS: MORPHINE SULFATE 20 MG/ML CONC SOLUTION. SL SCH ×4 (02:37→20:37)
[2021-07-11 11:00] VITALS: BP 84/40
[2021-07-11] MEDS ORDERED: MORPHINE SULFATE 20 MG/ML CONC SOLUTION. SL PRN ×4 (11:30)
[2021-07-11] MEDS: LORazepam INTENSOL 2 MG/ML ORAL.CONC SL PRN (12:09)
--- NOTE | 2021-07-11 12:49 | PN ---
DATE: 07/11/2021 DAILY PROGRESS NOTE LOCATION: She is in room 554. SUBJECTIVE: This 85-year-old female remains on inpatient hospice. Two sons and son-in-law were present during exam. She is going downhill on a daily basis. Her respirations are slower than yesterday morning and has some crackles bilaterally on her exam today. They understand that the end is near, but unpredictable. She is taking nothing p.o. OBJECTIVE: VITAL SIGNS: Stable. She is afebrile, remains unarousable. CHEST: With some bilateral rales today. HEART: Regular. ABDOMEN: Benign. ASSESSMENT: Inpatient hospice with comfort care due to multiple underlying wounds with streptococcal bacteremia, probable breast cancer. PLAN: Continue comfort care if she continues to appear comfortable. CHANCE DR: Alethea TID: [id number]
[2021-07-11 19:00] VITALS: BP 115/55
[2021-07-12] MEDS: MORPHINE SULFATE 20 MG/ML CONC SOLUTION. SL SCH (02:50)
--- NOTE | 2021-07-12 04:00 | NUR ---
Dr. Varela and [facility] notified of pt's . Pt's sons in room at time of . Hospice stated that Analisa would be coming out to the hospital to assist.
--- NOTE | 2021-07-12 17:34 | DS ---
DATE OF DISCHARGE: 07/12/2021 Date of transition to [facility] and admission to hospice in-house 07/08/2021. Date of 07/12/2021. PRIMARY DIAGNOSES: 1. Streptococcal sepsis. 2. General debility. 3. Likely breast cancer, but unable to biopsy the lesion due to payment rules by insurance companies. 4. Severe osteoarthritis. CHIEF COMPLAINT AND HISTORY OF PRESENT ILLNESS: This 85-year-old female transitioned to General Inpatient Hospice on the day of admission due to wanting no further care regarding her legs or otherwise. She stated she was tired, did not want a breast biopsy at this point in time. She cannot look forward to that in the future and battling it and was ready to end at all. Family was in agreement and she was admitted. SUMMARY OF STAY: The patient was made comfortable throughout the stay by hospice. Family was attending bedside much of the stay. She peacefully management trainer hours on 07/12/2021. DISPOSITION: The patient's body was transferred to the home. We will be available to comfort the family as we can. ASHLEY DR: Alethea TID: [id number]
== END 2021-07-12 06:00 | DRG 872 ==
LOC: 5 SOUTH 13:11
PROVIDERS: ADMIT Family Medicine; ATTEND Family Medicine
DX: A40.9 Streptococcal sepsis, unspecified (principal); M19.90 Unspecified osteoarthritis, unspecified site; Z51.5 Encounter for palliative care; I89.0 Lymphedema, not elsewhere classified; R53.81 Other malaise; Z87.440 Personal history of urinary (tract) infections
CPT/HCPCS: G0378